=== PATIENT | female | born 1985 | race Two or more races ===

== ENCOUNTER 2024-09-03 07:00 | Inpatient (IN) | payer OTHER ==
[~2024-09-03] VITALS: Ht 162.6 cm; Wt 99.8 kg
[2024-09-03 07:51] VITALS: BP 137/85
[2024-09-03 08:00] LABS: PH,URINE 5.5 (5.0-8.0); URINE APPEARANCE Clear; URINE BILIRRUBIN Negative (NEGATIVE); URINE BLOOD Negative; URINE COLOR Yellow; URINE GLUCOSE Negative (NEGATIVE); URINE KETONE Negative (NEGATIVE); URINE LEUKOCYTE Negative; URINE NITRATE Negative; URINE PROTEIN Negative (NEGATIVE)
[2024-09-03 08:01] LABS: URINE BACTERIA 534.8 uL (0.0-1933); URINE EPITHELIAL CELLS 20.2 uL (0.0-38.8); URINE RBC 10.3 uL (0.0-20.8); URINE WBC 3.1 uL (0.0-23.2)
[2024-09-03 08:02] LABS: BASO % 0.5 % (0.1-1.2); EOS # 0.39 (0.04-0.54); HEMOGLOBIN 11.7 g/dL (11.2-15.7); LYMPH # 2.14 (1.18-3.74); LYMPH % 27.4 % (19.3-53.1); MEAN CORPUSCULAR HEMOGLOBIN 24.2 pg (25.6-32.2); MONO # 0.54 (0.24-0.82); MONO % 6.9 % (4.7-12.5); NEUT # 4.65 (1.56-6.13); NEUT % 59.7 % (34.0-71.1); PLATELET COUNT 339 K/uL (163-369); RED BLOOD COUNT 4.84 M/uL (3.93-5.22); RED CELL DISTRIBUTION WIDTH 15.5 % (11.6-14.4); URINE CAST 0.29 uL (0.0-1.40)
[2024-09-03 08:24] LABS: INR 0.95; PARTIAL THROMBOPLASTIN TIME 27.2 SECONDS (22.0-34.0); PROTHROMBIN TIME 10.4 SECONDS (9.0-11.5)
[2024-09-03 08:27] LABS: ALBUMIN 3.8 gm/dL (3.4-5.0); BILIRUBIN TOTAL 0.22 mg/dL (0.3-1.2); CALCIUM 8.7 mg/dL (8.5-10.1); CREATININE SERUM 0.73 mg/dL (0.55-1.02); GFR 88.3; GLOBULINA 3.6 G/DL (2.4-3.5); POTASSIUM 4.69 mEq/L (3.5-5.1); TOTAL PROTEIN 7.4 gm/dL (6.4-8.2)
[2024-09-07] MEDS ORDERED: DEXAMETHASONE SODIUM PHOSPHATE 4 MG/ML VIAL ONE (07:32)
[2024-09-07] MEDS ORDERED: ENALAPRILAT DIHYDRATE 1.25 MG/ML VIAL IV PRN (08:45)
[2024-09-07] MEDS ORDERED: ONDANSETRON HCL 2 MG/ML VIAL IV PRN (08:45)
[2024-09-07] MEDS ORDERED: MORPHINE SULFATE 2 MG/ML CARTRIDGE IV ONE (09:40)
[2024-09-07 14:13] VITALS: BP 123/81; O2SAT 98
[2024-09-07 16:38] VITALS: BP 126/79; O2SAT 97
[2024-09-07] MEDS ORDERED: GABAPENTIN 100 MG CAPSULE PO SCH (17:00)
[2024-09-07] MEDS ORDERED: DIPHENHYDRAMINE HCL 150 MG,LIDOCAINE HCL 60 ML,MAG HYDROX/ALUMINUM HYD/SIMETH 60 ML PO SCH (17:00)
[2024-09-07] MEDS ORDERED: TRAMADOL HCL 50 MG TABLET PO SCH (17:00)
[2024-09-07] MEDS ORDERED: CYCLOBENZAPRINE HCL 5 MG TABLET PO SCH (17:00)
[2024-09-07] MEDS ORDERED: ACETAMINOPHEN 500 MG GEL..CAP PO SCH (17:00)
[2024-09-07] MEDS ORDERED: PANTOPRAZOLE SODIUM 40 MG/VIAL VIAL IV PUSH SCH (21:00)
[2024-09-08 01:11] VITALS: BP 115/74; O2SAT 100
[2024-09-08 08:46] VITALS: BP 141/83; O2SAT 99
== END 2024-09-08 12:14 | disposition home or self-care (01) | DRG 627 ==
LOC: SURH 09-07 07:00 → O/R 09-07 07:45 → SURH 09-07 12:24
PROVIDERS: ADMIT Surgery; ATTEND Surgery
PROC: 0GTG0ZZ Resection of Left Thyroid Gland Lobe, Open Approach (ICD-10-PCS; principal; 2024-09-07 07:00)
DX: C73 Malignant neoplasm of thyroid gland (principal)

== ENCOUNTER 2024-09-09 14:42 | Inpatient (IN) | payer OTHER ==
[~2024-09-09] VITALS: Ht 162.6 cm; Wt 104.3 kg
[2024-09-09] MEDS ORDERED: LEVALBUTEROL HCL 1.25 MG/3 ML SOLUTION IH ONE ×2 (16:30→17:10)
[2024-09-09] MEDS ORDERED: 0.9 % SODIUM CHLORIDE 1,000 ML IV ONE (16:30)
[2024-09-09] MEDS ORDERED: DEXAMETHASONE SODIUM PHOSP/PF 10 MG/ML VIAL IV ONE (16:30)
[2024-09-09] MEDS ORDERED: DEXAMETHASONE SODIUM PHOSPHATE 4 MG/ML VIAL ONE (16:33)
[2024-09-09 17:23] LABS: ABG PH 7.555 (7.35-7.45); ABG PO2 109.5 mmHg (80-100); BASE EXCESS -0.7 mmol/l; BICARBONATE 19.4 mmol/l (23-25); SaO2 98.9 %; Tco2 20.1 mmol/l
[2024-09-09 17:45] LABS: ALBUMIN 3.9 gm/dL (3.4-5.0); BILIRUBIN TOTAL 0.25 mg/dL (0.3-1.2); CALCIUM 8.9 mg/dL (8.5-10.1); CREATININE SERUM 0.74 mg/dL (0.55-1.02); GFR 86.92; POTASSIUM 3.91 mEq/L (3.5-5.1); TOTAL PROTEIN 7.9 gm/dL (6.4-8.2)
[2024-09-09 17:55] LABS: BASO % 0.4 % (0.1-1.2); EOS # 0.08 (0.04-0.54); EOS % 0.6 % (0.7-7.0); HEMATOCRIT 35.8 % (34.1-44.9); HEMOGLOBIN 11.5 g/dL (11.2-15.7); LYMPH # 2.41 (1.18-3.74); LYMPH % 19.5 % (19.3-53.1); MEAN CORPUSCULAR HEMOGLOBIN 24.5 pg (25.6-32.2); NEUT # 9.25 (1.56-6.13); NEUT % 74.8 % (34.0-71.1); PLATELET COUNT 374 K/uL (163-369); RED BLOOD COUNT 4.69 M/uL (3.93-5.22); RED CELL DISTRIBUTION WIDTH 15.7 % (11.6-14.4)
[2024-09-09] MEDS ORDERED: CLONAZEPAM 0.5 MG TABLET PO ONE (18:15)
[2024-09-09] MEDS ORDERED: 0.9 % SODIUM CHLORIDE 1,000 ML IV SCH (19:00)
[2024-09-09 19:28] VITALS: BP 122/80; O2SAT 98
[2024-09-09 19:30] VITALS: BP 122/80
[2024-09-09 20:03] LABS: ABG pCO2 22.4 mmHg (35-45); allen test SATISFACTORY; mode ROOM AIR; o2 21 %; puncture site RADIAL LEFT
[2024-09-09] MEDS ORDERED: MECLIZINE HCL 25 MG TABLET PO PRN (20:15)
[2024-09-09] MEDS ORDERED: ACETAMINOPHEN 500 MG GEL..CAP PO PRN (20:15)
[2024-09-09 20:42] VITALS: BP 138/83; O2SAT 99
[2024-09-09] MEDS ORDERED: SODIUM CHLORIDE FOR INHALATION 1 VIAL.NEB IH SCH (21:00)
[2024-09-10 01:25] VITALS: BP 112/68; O2SAT 100
[2024-09-10 08:42] VITALS: BP 105/70; O2SAT 96
[2024-09-10] MEDS ORDERED: FAMOTIDINE/PF 20 MG in 0.9 % SODIUM CHLORIDE 100 ML IV SCH (09:00)
[2024-09-10] MEDS ORDERED: FLUTICASONE PROPIONATE 50 MCG SPRAY NASAL SCH (09:15)
[2024-09-10] MEDS ORDERED: BENZONATATE 100 MG CAPSULE PO NR (10:00)
[2024-09-10] MEDS ORDERED: MECLIZINE HCL 25 MG TABLET PO NR (10:00)
[2024-09-10] MEDS ORDERED: LEVALBUTEROL HCL 1.25 MG/3 ML SOLUTION IH NR (10:00)
== END 2024-09-10 12:27 | disposition home or self-care (01) | DRG 156 ==
LOC: ER 15:05 → SURH 19:13
PROVIDERS: General Practice; ADMIT Internal Medicine; ATTEND Internal Medicine
PROC: 3E0F7GC Introduction of Other Therapeutic Substance into Respiratory Tract, Via Natural or Artificial Opening (ICD-10-PCS; principal; 2024-09-09)
PROC: 4A1HXCZ Monitoring of Products of Conception, Cardiac Rate, External Approach (ICD-10-PCS; 2024-09-09)
DX: J38.01 Paralysis of vocal cords and larynx, unilateral (principal); Z98.890 Other specified postprocedural states; R06.02 Shortness of breath; C73 Malignant neoplasm of thyroid gland